=== PATIENT | male | born 1970 | race Caucasian/White ===

== ENCOUNTER 2022-07-29 11:27 | Inpatient (IN) | payer SELFPAY ==
[~2022-07-29 11:27] MED LIST: Iopamidol-370 76% 500 ML 1 ML ONE
[2022-07-29 12:23] LABS: #Eosinphils 0.2 thou/uL (0.0-0.7); #Lymphocytes 2.1 thou/uL (1.20-3.40); #Monocytes 0.7 thou/uL (0.11-0.59); #Neutrophils 4.6 thou/uL (1.40-6.50); %Basophils 0.6 % (0.0-1.0); %Eosinophils 2.1 % (0.0-10.0); %Lymphocytes 27.4 % (21.0-51.0); %Monocytes 9.4 % (0.0-10.0); %Neutrophils 60.6 % (42.0-75.0); Hemoglobin 16.5 g/dL (14.0-18.0); Mean Corpuscular HGB CONC 33.5 g/dL (32.0-36.0); Mean Corpuscular Hemoglobin 32.9 pg (27.0-31.0); Mean Corpuscular Volume 98.3 fL (78.0-98.0); Mean Platelet Volume 10.1 fL (7.4-10.4); Platelet Count 164 thou/uL (130-400); RBC Distribution Width 11.3 % (11.5-14.5); White Blood Cell (WBC) Count 7.5 thou/uL (4.8-10.8)
[2022-07-29 12:42] LABS: ALT (SGPT) 19 U/L (8-55); AST (SGOT) 19 U/L (5-34); Albumin 4.4 g/dL (3.5-5.0); Alkaline Phosphatase 68 U/L (40-110); Anion Gap 13 mmol/L (10-20); BUN (Urea Nitrogen) 11 mg/dL (8.4-25.7); Bilirubin, Total 0.6 mg/dL (0.2-1.2); Calc. Creatinine Clearance 0 mL/min (70-130); Calcium 9.5 mg/dL (7.8-10.44); Carbon Dioxide 22 mmol/L (22-29); Chloride 105 mmol/L (98-107); Estimated GFR 82; Globulin 3.4 g/dL (2.4-3.5); Glucose 106 mg/dL (70-105); Lipase 31 U/L (8-78); Potassium 4.4 mmol/L (3.5-5.1); Protein, Total 7.8 g/dL (6.0-8.3); Sodium 136 mmol/L (136-145)
[2022-07-29] MEDS ORDERED: Ondansetron PF 4 MG/2 ML Vial ONE ×2 (13:29→17:11)
[2022-07-29] MEDS ORDERED: Morphine 4 MG/ML VIAL ONE (13:29)
[2022-07-29] MEDS ORDERED: fentaNYL Citrate/PF 100 MCG/2 ML SYRINGE ONE ×3 (15:54→17:27)
[2022-07-29 15:56] LABS: SARS-CoV-2 NAA Rapid Test Not Detected (NotDetected)
[2022-07-29] MEDS ORDERED: Bupivacaine/Epinephrine 0.25% 30 ML VIAL ONE (16:41)
[2022-07-29] MEDS ORDERED: Sodium Chloride 0.9% 100 ML ONE (17:04)
[2022-07-29] MEDS ORDERED: CEFAZOLIN 2 GM VIAL ONE (17:04)
[2022-07-29] MEDS ORDERED: Succinylcholine 200 MG/10 ml SYRINGE FS ONE (17:11)
[2022-07-29] MEDS ORDERED: PROPOFOL 200 MG/20 ML VIAL ONE (17:11)
[2022-07-29] MEDS ORDERED: Dexamethasone 20 MG/5 ML VIAL ONE (17:11)
[2022-07-29] MEDS ORDERED: Ketorolac Tromethamine 30 MG/ML VIAL ONE (17:11)
== END 2022-07-29 19:30 | disposition home or self-care (01) | DRG 355 ==
LOC: ERS 11:27 → SJJU 15:56
PROVIDERS: ADMIT Surgery; ATTEND Surgery
PROC: 0WQF0ZZ Repair Abdominal Wall, Open Approach (ICD-10-PCS; principal; 2022-07-29)
DX: K42.0 Umbilical hernia with obstruction, without gangrene (principal); I10 Essential (primary) hypertension; Z20.822 Contact with and (suspected) exposure to COVID-19; F17.210 Nicotine dependence, cigarettes, uncomplicated
CPT/HCPCS: 36415; 74177; 80053; 83605; 83690; 85025; 86850; 86900; 86901; 93005; 96374; 96375; J0690; J1100; J1885; J2270; J2405; J2704; J3490; Q9967; U0002